=== PATIENT | female | born 1985 | race Caucasian/White ===

== ENCOUNTER 2019-02-27 19:31 | Emergency (ER) | payer MEDICAID ==
--- NOTE | 2019-02-27 20:02 | EDM.PDOC ---
ED HPI GENERAL MEDICAL PROBLEM - General Chief Complaint: General Stated Complaint: constipation Time Seen by Provider: 02/27/19 19:52 Source of Information: Reports: Patient History Limitations: Reports: No Limitations - History of Present Illness INITIAL COMMENTS - FREE TEXT/NARRATIVE: Has been having difficulty with constipation since the beginning of the new year. Has hyperemesis and is on meds for it. She did take a stool softener and had minimal results from it. Here last stool was hard and she feels rectal pressure with it. Did contact her OB and was told to go to the ER if not improved. Did have emesis this AM. Onset: Gradual Location: Reports: Abdomen - Related Data Allergies Allergy/AdvReac Type Severity Reaction Status Date / Time No Known Allergies Allergy Verified 02/27/19 19:35 Home Meds: Home Meds Docusate Sodium [Colace] 300 mg PO DAILY 02/27/19 [History] Doxylamine Succinate [Unisom Sleep Aid] 25 mg PO BEDTIME 02/27/19 [History] Famotidine 20 mg PO DAILY 02/27/19 [History] M-Vit,Tx,Iron,Mins/Calc/Folic [Thera-M Caplet] 1 tab PO DAILY 02/27/19 [History] Ondansetron [Ondansetron ODT] 4 mg PO Q6HR PRN 02/27/19 [History] Promethazine HCl 12.5 mg PO Q6HR 02/27/19 [History] Pyridoxine HCl [Vitamin B-6] 25 mg PO DAILY 02/27/19 [History] 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 - Infectious Disease History Infectious Disease History: Reports: None - Past Surgical History HEENT Surgical History: Reports: Other (See Below) Other HEENT Surgeries/Procedures: wisdom teeth removal Dermatological Surgical History: Reports: Other (See Below) Social & Family History - Family History Family Medical History: Noncontributory - Tobacco Use Smoking Status *Q: Former Smoker Used Tobacco, but Quit: Yes Month/Year Tobacco Last Used: 11/2018 - Caffeine Use Caffeine Use: Reports: None - Recreational Drug Use Recreational Drug Use: No ED ROS GENERAL - Review of Systems Review Of Systems: See Below Constitutional: Reports: No Symptoms Respiratory: Reports: No Symptoms GI/Abdominal: Reports: Constipation, Nausea, Vomiting. Denies: Diarrhea : Reports: Other (Is 16 weeks .) ED EXAM, GENERAL - Physical Exam Exam: See Below Exam Limited By: No Limitations General Appearance: Alert, WD/WN, Mild Distress Respiratory/Chest: No Respiratory Distress, Lungs Clear, Normal Breath Sounds Cardiovascular: Regular Rate, Rhythm, No Edema GI/Abdominal: Normal Bowel Sounds, Soft, Non-Tender Neurological: Alert, Oriented Skin Exam: Warm, Dry, Intact Course - Vital Signs Last Recorded V/S: Last Vital Signs Temp 97.1 F 02/27/19 19:32 Pulse 103 H 02/27/19 19:32 Resp 18 02/27/19 19:32 BP 126/89 02/27/19 19:32 Pulse Ox 100 02/27/19 19:32 - Orders/Labs/Meds Orders: Active Orders 24 hr Category Date Time Status Enema [RC] ASDIRECTED Care 02/27/19 19:57 Active Enema [RC] ASDIRECTED Care 02/27/19 20:32 Ordered - Re-Assessments/Exams Free Text/Narrative Re-Assessment/Exam: 02/27/19 20:33 No results from the fleets enema. Rectal exam reveals very hard stool that is up high and I am unable to remove it at this time. Will try tap water enema. heart tones heard on doppler but baby is very active and unable to count. 02/27/19 21:42 Stool is softer on rectal exam. Is very tender with exam and unable to manually disimpact her. Discussed that with the stimulation of the enemas plus the MOM that hopefully overnight it will soften up and she will be able to pass stool. Start the miralax in the AM. Departure - Departure Time of Disposition: 21:42 Disposition: Home, Self-Care 01 Clinical Impression: Constipation during Qualifiers: Trimester: second trimester Qualified Code(s): O99.612 - Diseases of the digestive system complicating , second trimester - Discharge Information *PRESCRIPTION DRUG MONITORING PROGRAM REVIEWED*: Not Applicable *COPY OF PRESCRIPTION DRUG MONITORING REPORT IN PATIENT LEANNE: Not Applicable Instructions: High-Fiber Diet, Constipation, Adult Forms: ED Department Discharge Additional Instructions: push fluids continue on the stool softeners as directed by OB recheck if not improved. Can try miralax 17 gms daily until stools soften. Sepsis Event Note - Evaluation Sepsis Screening Result: No Definite Risk - Focused Exam Vital Signs: Vital Signs Temp Pulse Resp BP Pulse Ox 02/27/19 19:32 97.1 F 103 H 18 126/89 100 Date Exam was Performed: 02/27/19 Time Exam was Performed: 20:33 - Problem List & Annotations (1) Constipation during SNOMED Code(s): 38201690 Code(s): O99.619 - DISEASES OF THE DGSTV SYS COMP , UNSP TRIMESTER; K59.00 - CONSTIPATION, UNSPECIFIED Status: Acute Priority: High Qualifiers: Trimester: second trimester Qualified Code(s): O99.612 - Diseases of the digestive system complicating , second trimester; K59.00 - Constipation , unspecified - Problem List Review Problem List Initiated/Reviewed/Updated: Yes - My Orders Last 24 Hours: My Active Orders 02/27/19 19:57 Enema [RC] ASDIRECTED 02/27/19 20:32 Enema [RC] ASDIRECTED - Assessment/Plan Last 24 Hours: My Active Orders 02/27/19 19:57 Enema [RC] ASDIRECTED 02/27/19 20:32 Enema [RC] ASDIRECTED
[2019-02-27] MEDS ORDERED: Magnesium Hydroxide 400 MG/5 ML Susp 30 ML Cup PO ONE (21:09)
== END 2019-02-27 21:51 | disposition home or self-care (01) ==
LOC: CC.ED 19:31
DX: O99.612 Diseases of the digestive system complicating pregnancy, second trimester (principal); K59.00 Constipation, unspecified; Z87.891 Personal history of nicotine dependence; Z3A.16 16 weeks gestation of pregnancy
CPT/HCPCS: 99283; A9270-GY

== ENCOUNTER 2019-03-04 09:05 | Emergency (ER) | payer MEDICAID ==
[2019-03-04] MEDS: Lactated Ringers 1,000 ML IV SCH (09:47)
[2019-03-04] MEDS: Ondansetron 4 MG/2 ML SDV IVPUSH PRN (09:47)
--- NOTE | 2019-03-04 10:15 | EDM.PDOC ---
ED HPI GENERAL MEDICAL PROBLEM - General Chief Complaint: General Stated Complaint: AND VOMITING Time Seen by Provider: 03/04/19 09:13 Source of Information: Reports: Patient History Limitations: Reports: No Limitations - History of Present Illness INITIAL COMMENTS - FREE TEXT/NARRATIVE: Patient presents to ER with complaints of hyperemesis. Is currently 17 weeks gestation. Has had issues with nausea and vomiting since early onset. Is currently on several medications for this, admits she ran out of her Zofran yesterday. Has not contacted her OB. Moved here from [place] and is living with her mother at present and plans to move to [place] where she will have her OB visits. She states she has been vomiting every 30 minutes since yesterday, unable to keep anything down. Denies any shortness of breath, chest discomfort or abdominal pain. Onset: Gradual Duration: Day(s):, Waxing/Waning Treatments [employer]EL [employer]ATE [employer]INTER: Reports: Other Medication(s) Other Treatments [employer]EL [employer]ATE [employer]INTER: Vitamin B, zofran, promethazine, unisom - Related Data Allergies Allergy/AdvReac Type Severity Reaction Status Date / Time No Known Allergies Allergy Verified 03/04/19 09:16 Home Meds: Home Meds Docusate Sodium [Colace] 200 mg PO BID 02/27/19 [History] Doxylamine Succinate [Unisom Sleep Aid] 25 mg PO BEDTIME 02/27/19 [History] Famotidine 20 mg PO BID 02/27/19 [History] M-Vit,Tx,Iron,Mins/Calc/Folic [Thera-M Caplet] 1 tab PO DAILY 02/27/19 [History] Ondansetron [Ondansetron ODT] 4 mg PO Q6HR PRN 02/27/19 [History] Promethazine HCl 12.5 mg PO Q6HR 02/27/19 [History] Pyridoxine HCl [Vitamin B-6] 25 mg PO Q8H 02/27/19 [History] 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 Denies: Fever, Chills, Weakness HEENT: Reports: No Symptoms Respiratory: Denies: Shortness of Breath Cardiovascular: Denies: Chest Pain, Edema, Lightheadedness Endocrine: Denies: Fatigue GI/Abdominal: Reports: Nausea, Vomiting. Denies: Abdominal Pain : Reports: No Symptoms Musculoskeletal: Reports: No Symptoms Skin: Reports: No Symptoms Psychiatric: Reports: No Symptoms ED EXAM, GENERAL - Physical Exam Exam: See Below Exam Limited By: No Limitations General Appearance: Alert, WD/WN, Mild Distress Ears: Normal External Exam, Normal TMs Nose: Normal Inspection, Normal Mucosa, No Blood Throat/Mouth: Normal Inspection, Normal Oropharynx Head: Normocephalic Neck: Normal Inspection, Supple, Non-Tender Respiratory/Chest: No Respiratory Distress, Lungs Clear, Normal Breath Sounds Cardiovascular: Regular Rate, Rhythm GI/Abdominal: Normal Bowel Sounds, Soft, Non-Tender (Female) Exam: Heart Tones (133) Neurological: Alert, Oriented Skin Exam: Warm, Dry Course - Vital Signs Last Recorded V/S: Last Vital Signs Temp 98.5 F 03/04/19 11:25 Pulse 92 03/04/19 11:25 Resp 20 03/04/19 11:25 BP 134/83 03/04/19 11:25 Pulse Ox 99 03/04/19 11:25 - Orders/Labs/Meds Orders: Active Orders 24 hr Category Date Time Status Lactated Ringers [Ringers, Lactated] 1,000 ml Med 03/04/19 09:30 Active IV ASDIRECTED Ondansetron [Zofran] Med 03/04/19 09:21 Active 4 mg IVPUSH Q6H PRN Medication Orders Lactated Ringer's (Ringers, Lactated) 1,000 mls @ 250 mls/hr IV ASDIRECTED MARIA VICTORIA Last Admin: 03/04/19 09:47 Dose: 250 mls/hr Ondansetron HCl (Zofran) 4 mg IVPUSH Q6H PRN PRN Reason: Nausea Last Admin: 03/04/19 09:47 Dose: 4 mg Meds: Medications Generic Name Dose Route Start Last Admin Trade Name Freq PRN Reason Stop Dose Admin Lactated Ringer's 1,000 mls @ 250 mls/hr 03/04/19 09:30 03/04/19 09:47 Ringers, Lactated IV 250 mls/hr ASDIRECTED MARIA VICTORIA Administration Ondansetron HCl 4 mg 03/04/19 09:21 03/04/19 09:47 Zofran IVPUSH 4 mg Q6H PRN Administration Nausea - Re-Assessments/Exams Free Text/Narrative Re-Assessment/Exam: 03/04/19 1200 Patient has been resting comfortably. Drinking water without further vomiting. Now states up to bathroom and got dizzy and feels nauseated again. Allowed to take home med for nausea. Departure - Departure Time of Disposition: 13:34 Disposition: Home, Self-Care 01 Clinical Impression: Hyperemesis gravidarum - Discharge Information *PRESCRIPTION DRUG MONITORING PROGRAM REVIEWED*: No *COPY OF PRESCRIPTION DRUG MONITORING REPORT IN PATIENT LEANNE: No Referrals: PCP,Unobtain [Primary Care Provider] - Forms: ED Department Discharge Additional Instructions: 1. Rest 2. Diet as tolerated, push fluids 3. Usual meds for nausea as directed 4. Contact OB for further direction Sepsis Event Note - Evaluation Sepsis Screening Result: No Definite Risk - Focused Exam Vital Signs: Vital Signs Temp Pulse Resp BP BP Pulse Ox 03/04/19 11:25 98.5 F 92 20 134/83 99 03/04/19 09:13 97.9 F 69 20 145/85 H 100 Date Exam was Performed: 03/04/19 Time Exam was Performed: 13:36 - My Orders Last 24 Hours: My Active Orders 03/04/19 09:21 Ondansetron [Zofran] 4 mg IVPUSH Q6H PRN 03/04/19 09:30 Lactated Ringers [Ringers, Lactated] 1,000 ml IV ASDIRECTED - Assessment/Plan Last 24 Hours: My Active Orders 03/04/19 09:21 Ondansetron [Zofran] 4 mg IVPUSH Q6H PRN 03/04/19 09:30 Lactated Ringers [Ringers, Lactated] 1,000 ml IV ASDIRECTED
== END 2019-03-04 14:20 | disposition home or self-care (01) ==
LOC: CC.ED 09:05
DX: O21.0 Mild hyperemesis gravidarum (principal); Z3A.17 17 weeks gestation of pregnancy; Z87.891 Personal history of nicotine dependence
CPT/HCPCS: 96361; 96374; 99283-25; J2405; J7120